=== PATIENT | male | born 1965 ===

== ENCOUNTER 2018-08-24 02:54 | Emergency (ER) | payer BC ==
[2018-08-24 03:09] VITALS: PULSE 89
--- NOTE | 2018-08-24 03:29 | C.PDOC ---
History Of Present Illness Patient presents with worsening cough, non productive for over 3 weeks. Worsened on Friday/ No f/c/n/v. Speaking in complete sentences. Tolerating po Time Seen by Provider: 08/24/18 03:10 Chief Complaint (Nursing): Cough, Cold, Congestion History Per: Patient History/Exam Limitations: no limitations Onset/Duration Of Symptoms: Days (21) Current Symptoms Are (Timing): Still Present Location Of Pain: Throat Sick Contacts (Context): None Associated Symptoms: Sore Throat, Cough. denies: Fever, Chills, Sputum Ear Symptoms: Bilateral: None Severity: Mild Pain Scale Rating Of: 3 Recent travel outside of the [place]: No Additional History Per: Patient Past Medical History Reviewed: Historical Data, Nursing Documentation, Vital Signs Vital Signs: Last Vital Signs Temp Pulse 89 08/24/18 03:01 Resp 18 08/24/18 03:01 BP Pulse Ox 96 08/24/18 03:01 - Medical History PMH: Denies: Chronic Kidney Disease Family History: States: No Known Family Hx - Social History Hx Alcohol Use: No Hx Substance Use: No - Immunization History Hx Tetanus Toxoid Vaccination: No Hx Influenza Vaccination: No Hx Pneumococcal Vaccination: No Review Of Systems Constitutional: Negative for: Fever, Chills Cardiovascular: Negative for: Chest Pain Respiratory: Positive for: Cough. Negative for: Shortness of Breath, Wheezing Gastrointestinal: Negative for: Abdominal Pain Skin: Negative for: Rash Neurological: Negative for: Weakness Psych: Negative for: Anxiety Physical Exam - Physical Exam Appears: Non-toxic, No Acute Distress Skin: Warm, Dry Oral Mucosa: Moist Tongue: Normal Appearing Lips: Normal Appearing Throat: No Erythema, No Exudate Neck: Supple Chest: Symmetrical Cardiovascular: Rhythm Regular Respiratory: No Rales, No Rhonchi, No Wheezing ED Course And Treatment O2 Sat by Pulse Oximetry: 96 Pulse Ox Interpretation: Normal Reevaluation Time: 05:43 Reassessment Condition: Improved Disposition Counseled Patient/Family Regarding: Studies Performed, Diagnosis, Need For Followup, Rx Given - Disposition Referrals: Hardik Cowart MD [Staff Provider] - Disposition: HOME/ ROUTINE Disposition Time: 03:29 Condition: FAIR Additional Instructions: Please return if symptoms recur Prescriptions: Albuterol HFA [Ventolin HFA 90 mcg/actuation (8 g)] 2 puff IH [id number] #1 puff Azithromycin [Zithromax Tri-Jose] 500 mg PO DAILY #3 tablet Instructions: Upper Respiratory Infection (ED) Forms: [employer] (Turkmen) - Clinical Impression Clinical Impression: Upper respiratory infection
[2018-08-24] MEDS ORDERED: Albuterol-Ipratrop 3 mg / 0.5 (3 ml) UD ONE (03:39)
[2018-08-24] MEDS: Albuterol-Ipratrop 3 mg / 0.5 (3 ml) UD IH SCH ×3 (03:46→04:40)
[2018-08-24 05:53] VITALS: BP 140/98; RESP 17; TEMP 98.3; O2SAT 98
== END 2018-08-24 05:52 | disposition home or self-care (01) ==
LOC: C.ER 02:54
DX: J06.9 Acute upper respiratory infection, unspecified (principal)